=== PATIENT | female | born 1940 | race Caucasian/White ===

== ENCOUNTER 2017-03-31 05:54 | Day surgery (SDC) | payer MEDICARE, OTHER ==
[2017-03-31] MEDS ORDERED: Midazolam 1 MG/ML 2 ML SDV IV ONE ×5 (05:55→06:47)
[2017-03-31] MEDS ORDERED: fentaNYL 100 MCG/2 ML SDV IV ONE ×3 (05:55→06:37)
[2017-03-31] MEDS ORDERED: Dextrose 5%-0.45% NaCl 1,000 ML IV SCH (06:00)
[2017-03-31] MEDS ORDERED: Sodium Chloride 0.9% 10 ML Syringe FLUSH PRN (06:00)
[2017-03-31] MEDS ORDERED: Midazolam 1 MG/ML 2 ML SDV ONE (06:25)
[2017-03-31] MEDS ORDERED: fentaNYL 100 MCG/2 ML SDV ONE (06:25)
--- NOTE | 2017-03-31 07:21 | OR ---
DATE: 03/31/2017 PROCEDURES: Total colonoscopy, narrow-band imaging, and multiple cold snare polypectomies. INSTRUMENT USED: PCF-H180 AL Olympus video colonoscope. PREMEDICATIONS: Fentanyl 100 mcg intravenous, Versed 3 mg intravenous. Nasal O2 cannula. The procedure was done under pulse oximetry, BP recording, and career specialist. INDICATIONS: The patient with previous colonic adenoma and recent difficulties of constipation. Colonoscopic examination is done for detection of any polypoid lesions and removal, endoscopic hemostasis therapy if needed. DESCRIPTION OF PROCEDURE: Initial rectal exam was unremarkable. Rigid anoscopy was normal. The colonoscope was passed with ease. Numerous scattered diverticula were noted in the distal left colon along with deformity. The scope was passed with ease up to the ileocecal area. Photographs were taken of the normal-appearing cecum identified by double-bulged ileocecal folds. No bleeding was noted from any of the visualized areas at the commencement of the examination. In the mid transverse colon and proximal transverse colon, 5 mm sized benign-appearing polyps were noted. NBI views were obtained. Photograph was taken of the mid transverse colon polyp. Cold snare polypectomies were done. The tissues were retrieved and sent for histopathology. No stricture. No vascular ectasia. No large isolated ulcerations seen. No evidence of diffuse inflammatory bowel disease in the form of friability, contact bleeding, or ulcerations. Probing the proximal sides of folds and flexures, using adequate distention and clearing up the stool material, withdrawal of the scope was made. Cecum to rectum time over 6 minutes. No bleeding was noted from any of the visualized areas at the completion of examination. IMPRESSION: 1. Diverticulosis. 2. Multiple diminutive colonic polyps. The patient tolerated the procedure well. [facility] /[id number]
== END 2017-03-31 09:02 | disposition home or self-care (01) ==
LOC: DL.ENDO 05:54
PROVIDERS: ATTEND Internal Medicine Gastroenterology
DX: Z12.11 Encounter for screening for malignant neoplasm of colon (principal); K57.30 Diverticulosis of large intestine without perforation or abscess without bleeding; D12.3 Benign neoplasm of transverse colon; F41.1 Generalized anxiety disorder; F32.9 Major depressive disorder, single episode, unspecified; E78.5 Hyperlipidemia, unspecified; Z86.010 Personal history of colon polyps; Z90.49 Acquired absence of other specified parts of digestive tract; Z88.8 Allergy status to other drugs, medicaments and biological substances
CPT/HCPCS: 45385; J2250; J3010; J7042; 88305

== ENCOUNTER 2017-09-13 06:21 | Day surgery (SDC) | payer MEDICARE, OTHER ==
[2017-09-13] MEDS ORDERED: Sodium Chloride 0.9% 10 ML Syringe IV ONE (06:22)
[2017-09-13] MEDS ORDERED: Midazolam 1 MG/ML 2 ML SDV IV ONE (06:22)
[2017-09-13] MEDS ORDERED: Dexamethasone 4 MG/ML SDV IV ONE (06:22)
[2017-09-13] MEDS ORDERED: Moxifloxacin 0.5% Ophth Soln 3 ML Bottle EYERT ONE (06:30)
[2017-09-13] MEDS ORDERED: Ondansetron 4 MG/2 ML SDV IVPUSH PRN (06:30)
[2017-09-13] MEDS ORDERED: Proparacaine 0.5% Ophth Soln 15 ML Bottle EYERT ONE (06:30)
[2017-09-13] MEDS ORDERED: Phenylephrine 10% Ophth Soln 5 ML Bot EYERT PRN (06:30)
[2017-09-13] MEDS ORDERED: Sodium Chloride 0.9% 10 ML Syringe FLUSH PRN (06:30)
[2017-09-13] MEDS ORDERED: Povidone-Iodine 5% Sterile Ophth Soln 30 ML Bottle EYERT ONE ×2 (06:30→07:45)
[2017-09-13] MEDS ORDERED: Acetaminophen 325 MG Tab PO PRN (06:30)
[2017-09-13] MEDS ORDERED: Phenylephrine 10% Ophth Soln 5 ML Bot EYERT ONE (06:30)
[2017-09-13] MEDS ORDERED: Timolol Maleate 0.5% Ophth Soln 5 ML Bottle EYERT ONE (06:30)
[2017-09-13] MEDS ORDERED: Cataract Ophth Solution EYERT ONE (06:30)
[2017-09-13] MEDS ORDERED: Tetracaine HCl/PF 0.5% 4 ML Bottle EYERT ONE (07:44)
[2017-09-13] MEDS ORDERED: Lidocaine 1% 30 ML SDV INJECT ONE (07:52)
[2017-09-13] MEDS ORDERED: Balanced Salt Solution Plus Ophth Irrig 500 ML Bottle IOCULAR ONE (07:56)
[2017-09-13] MEDS ORDERED: Vancomycin 500 MG SDV EYERT ONE (07:56)
[2017-09-13] MEDS ORDERED: Dexamethasone 4 MG/ML SDV IOCULAR ONE (07:58)
[2017-09-13] MEDS ORDERED: Chondroitin Sulfate/Hyaluronate Sodium Ophth Inj 0.75 ML Syringe EYERT ONE (07:59)
[2017-09-13] MEDS ORDERED: Dexamethasone/Neomycin/Polymyxin B Ophth Oint 3.5 GM Tube EYERT ONE (08:00)
[2017-09-13] MEDS ORDERED: Apraclonidine 0.5% Ophth Soln 5 ML Bot EYERT ONE (08:00)
--- NOTE | 2017-09-13 11:09 | OR ---
DATE: 09/13/2017 PREOPERATIVE DIAGNOSIS: Visually significant mixed cataract, right eye. POSTOPERATIVE DIAGNOSIS: Visually significant mixed cataract, right eye. PROCEDURE: Extracapsular cataract extraction with intraocular lens implant, right eye. ANESTHESIA: Topical/local MAC. COMPLICATIONS: None. INDICATION: Ms. Bhandari was seen in the clinic. She has complained of a slow progressive decrease in vision. Clinical examination reveals visually significant cataract. I explained options; I offered cataract surgery; and I explained risks including the potential for infection, retinal detachment, and loss of vision amongst others. She is symptomatic and requested surgery. She requested a monofocal implant. OPERATIVE DESCRIPTION: After informed consent was obtained and the risks, benefits, and alternatives were explained, the patient was brought to the operative suite and topical anesthesia was administered. The patient was then prepped and draped in the sterile fashion, and attention was placed on the right eye. A sterile lid speculum was placed into the right eye to allow operative exposure. A full-thickness paracentesis was made in the temporal portion of the operative eye. Preservative-free lidocaine 0.1 mL was injected into the anterior chamber followed by viscoelastic. A full-thickness corneal incision was then made into the anterior chamber. A bent needle cystotome was used to create a small aleah in the anterior capsule. The capsulorrhexis forceps was then used to create a 360-degree curvilinear capsulorrhexis. The nucleus was then removed using a phacoemulsification handpiece, and the remaining cortical material was then removed with irrigation and aspiration handpiece. Following removal of the cortical material, the capsular bag was then inspected and noted to be free of any holes or tears. Viscoelastic was then injected into the capsular bag, and the intraocular lens was inserted into the capsular bag. The viscoelastic material was then removed from both the anterior and posterior chambers and from behind the IOL. The lens and capsular bag were then reinspected. The IOL was well centered and the capsular bag intact. The wound and paracentesis sites were inspected and hydrated with balanced saline solution. Both were found to be self-sealing. The intraocular pressure was assessed digitally and found to be within normal range. A good red reflex was noted at the completion of the procedure. No complications occurred during the operation. At the completion of the procedure, Maxitrol, Voltaren, and Iopidine drops were placed into the operative eye. A sterile eye shield was placed over the operative eye, and the patient was transported to the postoperative recovery area having tolerated the procedure well. Postoperative instructions were given along with a postoperative appointment. The patient was advised to call with any questions or concerns. [facility] /[id number]
== END 2017-09-13 09:03 | disposition home or self-care (01) ==
LOC: DL.SDS 06:21
PROVIDERS: ATTEND Ophthalmology
PROC: 08RJ3JZ Replacement of Right Lens with Synthetic Substitute, Percutaneous Approach (ICD-10-PCS; principal; 2017-09-13)
DX: H26.8 Other specified cataract (principal); E78.5 Hyperlipidemia, unspecified; Z87.891 Personal history of nicotine dependence; F32.9 Major depressive disorder, single episode, unspecified; F41.9 Anxiety disorder, unspecified; Z79.82 Long term (current) use of aspirin; Z79.899 Other long term (current) drug therapy; Z88.8 Allergy status to other drugs, medicaments and biological substances
CPT/HCPCS: 66984; A9270; J1100; J2250; J3370; J7050; 00140

== ENCOUNTER 2019-07-30 21:26 | Emergency (ER) | payer MEDICARE, OTHER ==
[2019-07-30] MEDS ORDERED: Ondansetron 4 MG Tab.DIS PO ONE (21:27)
[2019-07-30] MEDS ORDERED: Sodium Chloride 0.9% 1,000 ML IV ONE (21:37)
[2019-07-30] MEDS ORDERED: Ondansetron 4 MG/2 ML SDV IVPUSH ONE (21:37)
[2019-07-30 22:19] LABS: ANION GAP 13.2 mEq/L (7-13); CHLORIDE,CL 98 mmol/L (98-107); SODIUM,NA 137 mmol/L (136-145)
[2019-07-30] MEDS ORDERED: Iopamidol 612 MG/ML 100 ML Bottle IVPUSH ONE (22:30)
[2019-07-30] MEDS ORDERED: Potassium Chloride 10 MEQ in Premix Bag 1 BAG IV ONE (22:33)
[2019-07-30] MEDS ORDERED: Acetaminophen 325 MG Tab PO ONE (23:25)
[2019-07-30] MEDS ORDERED: Ondansetron 4 MG Tab.DIS ONE (23:51)
--- NOTE | 2019-07-31 00:05 | EDM.PDOC ---
"ED HPI GENERAL MEDICAL PROBLEM - General Chief Complaint: Fever Stated Complaint: vomiting/temp Time Seen by Provider: 07/30/19 22:05 Source of Information: Reports: Patient, Other (friend) History Limitations: Reports: No Limitations - History of Present Illness INITIAL COMMENTS - FREE TEXT/NARRATIVE: ED ambulatory with c/o fever, vomiting and nausea, Generalized weakness tonight. Multiple emesis starting at 630 this am, at least hourly vomiting throughout day. Unable to keep down sips of & up or tylenol tonight. Temp max tonight 101.6. Reports was through [employer] drive-thru COVID testing today. No results known. Denies SOB. Has had generalized body aches but chronic, Some abdominal cramping this am none now. No cough, No sore throat, Mild intermittent headache, No dizziness. No diarrhea, BM earlier today normal. No urinary symptoms. Treatments PHOTO CARTOGRAPHER: Reports: Acetaminophen - Related Data Allergies Allergy/AdvReac Type Severity Reaction Status Date / Time atorvastatin [From Lipitor] Allergy Muscle Verified 07/30/19 21:57 Aches pravastatin [From Pravachol] Allergy Muscle Verified 07/30/19 21:57 Aches Home Meds: Home Meds Calcium Carbonate/Vitamin D3 [Calcium 600 + Vit D 400] 1 each PO BID 08/21/13 [ History] LORazepam [Ativan] 1 mg PO BEDTIME 08/21/13 [History] Aspirin [Adult Low Dose Aspirin EC] 81 mg PO DAILY 09/27/13 [History] Selenomethionine [Selenium] 200 mcg PO DAILY 09/27/13 [History] Vitamin B Complex [B Complex] 1 tab PO DAILY 09/27/13 [History] Melatonin 1 tab PO BEDTIME PRN 03/21/17 [History] Escitalopram [Lexapro] 5 mg PO DAILY 03/30/17 [History] Arjuna 1 tab PO DAILY 08/30/17 [History] Chlorthalidone 12.5 mg PO BEDTIME 08/30/17 [History] Hya/PVP/Alyse/Jaime/PG/Mal/Hyd/Justin [Rincinol P.r.n. Mouth Rinse] 1 dose PO ASDIRECTED PRN 08/30/17 [History] Ibuprofen [Advil] 2 tab PO .EVERYOTHERDAY 09/04/17 [History] Naproxen Sodium [Aleve] 220 - 1,220 mg PO DAILY PRN 09/07/17 [History] Past Medical History HEENT History: Reports: Cataract Cardiovascular History: Reports: High Cholesterol, Hypertension Respiratory History: Reports: None Gastrointestinal History: Reports: Colon Polyp, Gastritis Genitourinary History: Reports: None BED MANAGER History: Reports: , Spontaneous , Other (See Below) Other BED MANAGER History: POSTMENOPAUSAL Musculoskeletal History: Reports: Arthritis, Back Pain, Chronic, Osteoarthritis Other Musculoskeletal History: sciatic nerve discomfort Neurological History: Reports: None Psychiatric History: Reports: Anxiety, Depression Endocrine/Metabolic History: Reports: None Hematologic History: Reports: None Immunologic History: Reports: None Oncologic (Cancer) History: Reports: Other (See Below) Other Oncologic History: HX OF MENINGIOMA Dermatologic History: Reports: None - Infectious Disease History Infectious Disease History: Reports: Chicken Pox, Measles, Mumps - Past Surgical History Head Surgeries/Procedures: Reports: None HEENT Surgical History: Reports: Adenoidectomy, Cataract Surgery, Tonsillectomy Cardiovascular Surgical History: Reports: None Respiratory Surgical History: Reports: None GI Surgical History: Reports: Cholecystectomy, Colonoscopy, EGD, Polypectomy Female Surgical History: Reports: Section Endocrine Surgical History: Reports: None Neurological Surgical History: Reports: Other (See Below) Other Neurological Surgeries/Procedures: EPIDURAL INJECTION LUMBAR/CAUDAL Musculoskeletal Surgical History: Reports: Shoulder Surgery, Other (See Below) Other Musculoskeletal Surgeries/Procedures:: CLAVICLE RESECTION Oncologic Surgical History: Reports: None Dermatological Surgical History: Reports: None Social & Family History - Family History Family Medical History: Noncontributory - Tobacco Use Smoking Status *Q: Never Smoker Second Hand Smoke Exposure: No - Caffeine Use Caffeine Use: Reports: Soda Other Caffeine Use: 4 cups daily - Alcohol Use Date of Last Drink: 07/30/19 - Recreational Drug Use Recreational Drug Use: No ED ROS GENERAL - Review of Systems Review Of Systems: Comprehensive ROS is negative, except as noted in HPI. ED EXAM, GI/ABD - Physical Exam Exam: See Below Exam Limited By: No Limitations General Appearance: Alert, Mild Distress Eyes: Bilateral: EOMI Ears: Normal External Exam Nose: Normal Inspection Throat/Mouth: Normal Inspection Head: Atraumatic, Normocephalic Neck: Normal Inspection Respiratory/Chest: No Respiratory Distress, Lungs Clear, Normal Breath Sounds. No: Crackles, Rales, Rhonchi, Wheezing Cardiovascular: Regular Rate, Rhythm GI/Abdominal Exam: Normal Bowel Sounds, Soft, Non-Tender Back Exam: Normal Inspection Extremities: Normal Inspection, Normal Range of Motion Neurological: Alert, Oriented, Normal Cognition, Normal Gait, Normal Reflexes Psychiatric: Normal Affect Skin Exam: Warm, Dry, Intact, Normal Color Course - Vital Signs Last Recorded V/S: Last Vital Signs Temp 99 F 07/30/19 23:08 Pulse 94 07/30/19 23:08 Resp 18 07/30/19 23:08 BP 128/55 L 07/30/19 23:08 Pulse Ox 95 07/30/19 23:08 - Orders/Labs/Meds Orders: Active Orders 24 hr Category Date Time Status Abdomen Pelvis w Cont [CT] Urgent Exams 07/30/19 22:29 Ordered CULTURE BLOOD [] Stat Lab 07/30/19 21:35 Ordered CULTURE BLOOD [] Stat Lab 07/30/19 21:39 Received CULTURE STREP A CONFIRMATION [] Stat Lab 07/30/19 21:35 Results STREP SCRN A RAPID W CULT CONF [] Stat Lab 07/30/19 21:35 Results Sodium Chloride 0.9% [Normal Saline] 1,000 ml Med 07/30/19 21:37 Active IV .BOLUS Blood Culture x2 Reflex Set [OM.PC] Stat Oth 07/30/19 21:34 Ordered Isolation [COMM] Routine Oth 07/30/19 21:36 Active Medication Orders Sodium Chloride (Normal Saline) 1,000 mls @ 200 mls/hr IV .BOLUS ONE Stop: 07/31/19 02:36 Last Infusion: 07/30/19 23:30 Dose: 350 mls/hr Admin: 07/30/19 21:45 Dose: 200 mls/hr Labs: Laboratory Tests 07/30/19 07/30/19 07/30/19 Range/Units 21:35 21:39 21:39 WBC 10.5 H (5.0-10.0) 10^3/uL RBC 4.92 (4.2-5.4) 10^6/uL Hgb 15.0 (12.0-16.0) g/dL Hct 43.4 (37.0-47.0) % MCV 88.2 (80-100) fL MCH 30.5 (27.0-34.0) pg MCHC 34.6 (33.0-35.0) g/dL Plt Count 190 (150-450) 10^3/uL Neut % (Auto) 89.5 H (42.2-75.2) % Lymph % (Auto) 4.2 L (20.5-50.1) % [place] % (Auto) 6.1 (2-8) % Eos % (Auto) 0.1 L (1.0-3.0) % Baso % (Auto) 0.1 (0.0-1.0) % PT (9.0-12.0) SEC INR (0.9-1.2) D-Dimer, Quantitative 713 H (0-400) ng/mL Sodium (136-145) mmol/L Potassium (3.5-5.1) mmol/L Chloride (98-107) mmol/L Carbon Dioxide (21-32) mmol/L Anion Gap (7-13) mEq/L BUN (7-18) mg/dL Creatinine (0.55-1.02) mg/dL Est Cr Clr Drug Dosing mL/min Estimated GFR (MDRD) BUN/Creatinine Ratio (No establ ref range) Glucose (74-99) mg/dL Lactic Acid (0.4-2.0) mmol/L Calcium (8.5-10.1) mg/dL Magnesium (1.8-2.4) mg/dL Total Bilirubin (0.2-1.0) mg/dL AST (15-37) U/L ALT (14-59) U/L Alkaline Phosphatase (46-116) U/L Troponin I (0.000-0.056) ng/mL C-Reactive Protein (0.0-0.9) mg/dL Total Protein (6.4-8.2) g/dL Albumin (3.4-5.0) g/dL Globulin Albumin/Globulin Ratio Amylase (25-115) U/L Lipase (73-393) U/L Urine Color (YELLOW) Urine Appearance (CLEAR) Urine pH (5.0-9.0) Ur Specific [place] (1.005-1.030) Urine Protein (NEGATIVE) Urine Glucose (UA) (NEGATIVE) Urine Ketones (NEGATIVE) Urine Occult Blood (NEGATIVE) Urine Nitrite (NEGATIVE) Urine Bilirubin (NEGATIVE) Urine Urobilinogen (0.2-1.0) mg/dL Ur Leukocyte Esterase (NEGATIVE) U Hyaline Cast (Auto) Urine RBC /HPF Urine WBC (0-5/HPF) /HPF Ur Epithelial Cells (NOT SEEN) /HPF Amorphous Sediment (NOT SEEN) /HPF Urine Bacteria (0-FEW/HPF) /HPF Urine Mucus (NOT SEEN) /LPF SARS-CoV-2 RNA (RT-PCR) Negative (NEGATIVE) 07/30/19 07/30/19 07/30/19 Range/Units 21:39 21:39 21:39 WBC (5.0-10.0) 10^3/uL RBC (4.2-5.4) 10^6/uL Hgb (12.0-16.0) g/dL Hct (37.0-47.0) % MCV (80-100) fL MCH (27.0-34.0) pg MCHC (33.0-35.0) g/dL Plt Count (150-450) 10^3/uL Neut % (Auto) (42.2-75.2) % Lymph % (Auto) (20.5-50.1) % [place] % (Auto) (2-8) % Eos % (Auto) (1.0-3.0) % Baso % (Auto) (0.0-1.0) % PT 10.1 (9.0-12.0) SEC INR 1.1 (0.9-1.2) D-Dimer, Quantitative (0-400) ng/mL Sodium 137 (136-145) mmol/L Potassium 3.2 L (3.5-5.1) mmol/L Chloride 98 (98-107) mmol/L Carbon Dioxide 29 (21-32) mmol/L Anion Gap 13.2 H (7-13) mEq/L BUN 22 H (7-18) mg/dL Creatinine 1.01 (0.55-1.02) mg/dL Est Cr Clr Drug Dosing 41.97 mL/min Estimated GFR (MDRD) 53 BUN/Creatinine Ratio 21.8 (No establ ref range) Glucose 148 H (74-99) mg/dL Lactic Acid 1.8 (0.4-2.0) mmol/L Calcium 8.5 (8.5-10.1) mg/dL Magnesium 1.5 L (1.8-2.4) mg/dL Total Bilirubin 0.7 (0.2-1.0) mg/dL AST 22 (15-37) U/L ALT 36 (14-59) U/L Alkaline Phosphatase 64 (46-116) U/L Troponin I < 0.017 (0.000-0.056) ng/mL C-Reactive Protein 11.7 H (0.0-0.9) mg/dL Total Protein 7.1 (6.4-8.2) g/dL Albumin 3.9 (3.4-5.0) g/dL Globulin 3.2 Albumin/Globulin Ratio 1.2 Amylase 27 (25-115) U/L Lipase 138 (73-393) U/L Urine Color (YELLOW) Urine Appearance (CLEAR) Urine pH (5.0-9.0) Ur Specific [place] (1.005-1.030) Urine Protein (NEGATIVE) Urine Glucose (UA) (NEGATIVE) Urine Ketones (NEGATIVE) Urine Occult Blood (NEGATIVE) Urine Nitrite (NEGATIVE) Urine Bilirubin (NEGATIVE) Urine Urobilinogen (0.2-1.0) mg/dL Ur Leukocyte Esterase (NEGATIVE) U Hyaline Cast (Auto) Urine RBC /HPF Urine WBC (0-5/HPF) /HPF Ur Epithelial Cells (NOT SEEN) /HPF Amorphous Sediment (NOT SEEN) /HPF Urine Bacteria (0-FEW/HPF) /HPF Urine Mucus (NOT SEEN) /LPF SARS-CoV-2 RNA (RT-PCR) (NEGATIVE) 07/30/19 Range/Units 22:25 WBC (5.0-10.0) 10^3/uL RBC (4.2-5.4) 10^6/uL Hgb (12.0-16.0) g/dL Hct (37.0-47.0) % MCV (80-100) fL MCH (27.0-34.0) pg MCHC (33.0-35.0) g/dL Plt Count (150-450) 10^3/uL Neut % (Auto) (42.2-75.2) % Lymph % (Auto) (20.5-50.1) % [place] % (Auto) (2-8) % Eos % (Auto) (1.0-3.0) % Baso % (Auto) (0.0-1.0) % PT (9.0-12.0) SEC INR (0.9-1.2) D-Dimer, Quantitative (0-400) ng/mL Sodium (136-145) mmol/L Potassium (3.5-5.1) mmol/L Chloride (98-107) mmol/L Carbon Dioxide (21-32) mmol/L Anion Gap (7-13) mEq/L BUN (7-18) mg/dL Creatinine (0.55-1.02) mg/dL Est Cr Clr Drug Dosing mL/min Estimated GFR (MDRD) BUN/Creatinine Ratio (No establ ref range) Glucose (74-99) mg/dL Lactic Acid (0.4-2.0) mmol/L Calcium (8.5-10.1) mg/dL Magnesium (1.8-2.4) mg/dL Total Bilirubin (0.2-1.0) mg/dL AST (15-37) U/L ALT (14-59) U/L Alkaline Phosphatase (46-116) U/L Troponin I (0.000-0.056) ng/mL C-Reactive Protein (0.0-0.9) mg/dL Total Protein (6.4-8.2) g/dL Albumin (3.4-5.0) g/dL Globulin Albumin/Globulin Ratio Amylase (25-115) U/L Lipase (73-393) U/L Urine Color Dark yellow (YELLOW) Urine Appearance Slightly cloudy (CLEAR) Urine pH 7.0 (5.0-9.0) Ur Specific [place] 1.025 (1.005-1.030) Urine Protein 100 H (NEGATIVE) Urine Glucose (UA) Negative (NEGATIVE) Urine Ketones Negative (NEGATIVE) Urine Occult Blood Trace-intact H (NEGATIVE) Urine Nitrite Negative (NEGATIVE) Urine Bilirubin Negative (NEGATIVE) Urine Urobilinogen 0.2 (0.2-1.0) mg/dL Ur Leukocyte Esterase Negative (NEGATIVE) U Hyaline Cast (Auto) Occasional Urine RBC 10-20 H /HPF Urine WBC 0-5 (0-5/HPF) /HPF Ur Epithelial Cells Few (NOT SEEN) /HPF Amorphous Sediment Few (NOT SEEN) /HPF Urine Bacteria Few (0-FEW/HPF) /HPF Urine Mucus Rare (NOT SEEN) /LPF SARS-CoV-2 RNA (RT-PCR) (NEGATIVE) Meds: Medications Generic Name Dose Route Start Last Admin Trade Name Freq PRN Reason Stop Dose Admin Sodium Chloride 1,000 mls @ 200 mls/hr 07/30/19 21:37 07/30/19 23:30 Normal Saline IV 07/31/19 02:36 350 mls/hr .BOLUS ONE Infusion Discontinued Medications Generic Name Dose Route Start Last Admin Trade Name Freq PRN Reason Stop Dose Admin Acetaminophen 650 mg 07/30/19 23:25 07/30/19 23:30 Tylenol PO 07/30/19 23:26 650 mg NOW ONE Administration Potassium Chloride 10 meq/ 100 mls @ 100 mls/hr 07/30/19 22:33 07/30/19 23:07 Premix IV 07/30/19 23:32 100 mls/hr ONETIME ONE Administration Iopamidol 100 ml 07/30/19 22:30 07/30/19 23:10 Isovue-300 (61%) IVPUSH 07/30/19 22:31 75 ml ONETIME ONE Administration Ondansetron HCl 4 mg 07/30/19 21:37 07/30/19 21:43 Zofran IVPUSH 07/30/19 21:38 4 mg ONETIME ONE Administration Ondansetron HCl Confirm 07/30/19 23:51 Zofran Odt Administered 07/30/19 23:52 Dose 8 mg .ROUTE .[facility] ONE - Radiology Interpretation Free Text/Narrative:: [facility] Final Radiology Report Call: [phone] assistance Online chat: [email or web address] Name: CINDI RUBIN Age: 79Years F Date: 07/30/2019 SSN: -- : [id number] Study: CT ABDOMEN/PELVIS W Requesting Physician: COOPER CAGLE Images: [id number] Addl Studies: Provided Clinical History: Contrast: With Contrast Medium: Isovue 300 Contrast Amount: 75 mL Contrast Method: RAC Page 1 of 2 PROCEDURE INFORMATION: Exam: CT Abdomen And Pelvis With Contrast Exam date and time: 07/30/2019 10:51 PM Age: 79 years old Clinical indication: Fever and nausea; Abdominal pain; Generalized; Prior surgery; Surgery date: 6+ months; Surgery type: Cholecystectomy TECHNIQUE: Imaging protocol: Computed tomography of the abdomen and pelvis with intravenous contrast. Radiation optimization: All CT scans at this facility use at least one of these dose optimization techniques: automated exposure control; mA and/or kV adjustment per patient size (includes targeted exams where dose is matched to clinical indication); or iterative reconstruction. Contrast material: ISOVUE 300; Contrast volume: 75 ml; Contrast route: RAC; COMPARISON: CT Abdomen Pelvis wo Cont 08/03/2016 1:04 PM FINDINGS: Lungs: There is minimal bibasilar atelectasis. Couple stable adjacent noncalcified nodules in the left lower lobe measuring 4-5 mm on images 2:7 and 8, consistent with noncalcified granulomas. No follow-up per Fleischner criteria is necessary. Liver: Normal. No mass. Gallbladder and bile ducts: The gallbladder is absent. There is mild dilation of the extrahepatic bile ducts which may be seen following cholecystectomy. Pancreas: Normal. No ductal dilation. Spleen: Normal. No splenomegaly. Adrenals: Normal. No mass. SCOTTIE CINDI | Final Radiology Report CONFIDENTIALITY STATEMENT This report is intended only for use by the referring physician, and only in accordance with law. If you received this in error, call [phone]. Page 2 of 2 Kidneys and ureters: 1.5 cm right upper renal pole simple cyst. 1.1 cm lateral left upper renal pole simple cyst. Other subcentimeter bilateral renal low attenuation lesions are too small to accurately characterize. No hydronephrosis. Nonspecific mild bilateral perinephric fat stranding. Stomach and bowel: Colonic diverticulosis without evidence of acute diverticulitis. Moderate amount of colonic stool. No bowel obstruction. No mucosal thickening or pneumatosis. Appendix: No evidence of appendicitis. Intraperitoneal space: Unremarkable. No free air. No significant fluid collection. Vasculature: The vasculature demonstrates diffuse moderate atherosclerotic calcification. No abdominal aortic aneurysm. Lymph nodes: Unremarkable. No enlarged lymph nodes. Bladder: The the bladder is mostly decompressed. Reproductive: There is a fibroid with coarse calcifications measuring 4.1 x 4.1 cm. Bones/joints: Multilevel chronic degenerative changes of the lumbar spine. Grade 1 anterolisthesis of L3 on L4. Soft tissues: Unremarkable. IMPRESSION: 1. Colonic diverticulosis without evidence of acute diverticulitis. 2. Non-acute findings are described above. COMMENTS: Consistent with the [place]'s Incidental Findings Committee white paper (J Am True Radiol 2018): Any incidental cystic renal lesion classified in this report as too small to characterize or simple appearing is likely a benign cyst. No - Re-Assessments/Exams Free Text/Narrative Re-Assessment/Exam: 07/31/19 00:24 Nausea resolved following zofran. Tolerated tylenol and sips of water. Tx per self steady. Fever controlled. Results of labs and imaging reviewed with patient. D/c home with friend. Departure - Departure Time of Disposition: 23:55 Disposition: Home, Self-Care 01 Condition: Good Clinical Impression: Gastroenteritis Vomiting Qualifiers: Vomiting type: bilious vomiting Nausea presence: with nausea Qualified Code(s) : R11.14 - Bilious vomiting - Discharge Information *PRESCRIPTION DRUG MONITORING PROGRAM REVIEWED*: No *COPY OF PRESCRIPTION DRUG MONITORING REPORT IN PATIENT MADELIN: No Instructions: Nausea and Vomiting, Adult, [id number] Forms: ED Department Discharge Additional Instructions: tylenol 500mg-650mg every 4 hours as needed for fever/ discomfort clear liquid diet small amounts more frequently, advance diet as tolerated bland low acid foods x 48 hours follow up if weakness, dizziness or unable to keep any liquids down zofran 4mg ODT every 4 hours as needed for nausea or vomiting. Sepsis Event Note - Evaluation Sepsis Screening Result: No Definite Risk - Focused Exam Vital Signs: Vital Signs Temp Pulse Resp BP Pulse Ox 07/30/19 23:08 99 F 94 18 128/55 L 95 07/30/19 21:46 98.4 F 94 19 120/55 L 97 Date Exam was Performed: 07/31/19 Time Exam was Performed: 00:13 - My Orders Last 24 Hours: My Active Orders 07/30/19 21:34 Blood Culture x2 Reflex Set [OM.PC] Stat 07/30/19 21:35 CULTURE BLOOD [BC] Stat CULTURE STREP A CONFIRMATION [RM] Stat STREP SCRN A RAPID W CULT CONF [RM] Stat 07/30/19 21:36 Isolation [COMM] Routine 07/30/19 21:37 Sodium Chloride 0.9% [Normal Saline] 1,000 ml IV .BOLUS 07/30/19 21:39 CULTURE BLOOD [BC] Stat 07/30/19 22:29 Abdomen Pelvis w Cont [CT] Urgent - Assessment/Plan Last 24 Hours: My Active Orders 07/30/19 21:34 Blood Culture x2 Reflex Set [OM.PC] Stat 07/30/19 21:35 CULTURE BLOOD [] Stat CULTURE STREP A CONFIRMATION [RM] Stat STREP SCRN A RAPID W CULT CONF [] Stat 07/30/19 21:36 Isolation [COMM] Routine 07/30/19 21:37 Sodium Chloride 0.9% [Normal Saline] 1,000 ml IV .BOLUS 07/30/19 21:39 CULTURE BLOOD [BC] Stat 07/30/19 22:29 Abdomen Pelvis w Cont [CT] Urgent"
== END 2019-07-31 00:28 | disposition home or self-care (01) ==
LOC: DL.ED 21:26
DX: K52.9 Noninfective gastroenteritis and colitis, unspecified (principal); I10 Essential (primary) hypertension; M19.90 Unspecified osteoarthritis, unspecified site; F41.9 Anxiety disorder, unspecified; F32.9 Major depressive disorder, single episode, unspecified; Z79.82 Long term (current) use of aspirin; Z88.8 Allergy status to other drugs, medicaments and biological substances; Z79.899 Other long term (current) drug therapy
CPT/HCPCS: 36415; 74177; 80053; 81001; 82150; 83605; 83690; 83735; 84484; 85025; 85379; 85610; 86140; 87040; 87081; 87430; 87804; 96361; 96365; 96375; 99284; A9270; J2405; J3480; J7030; Q9967; U0002; 99283

== ENCOUNTER 2023-10-22 15:56 | Emergency (ER) | payer MEDICARE, OTHER ==
[2023-10-22] MEDS ORDERED: Sodium Chloride 0.9% 10 ML Syringe FLUSH PRN (16:45)
[2023-10-22] MEDS: Lactulose Soln 10 GM/15 ML 30 ML UD Cup PO ONE (16:54)
[2023-10-22] MEDS: Sodium Chloride 0.9% 1,000 ML IV ONE (16:56)
== END 2023-10-22 23:15 | disposition home or self-care (01) ==
LOC: DL.ED 15:56
DX: K59.00 Constipation, unspecified (principal); I10 Essential (primary) hypertension; E78.00 Pure hypercholesterolemia, unspecified; Z88.8 Allergy status to other drugs, medicaments and biological substances; Z79.82 Long term (current) use of aspirin; Z79.899 Other long term (current) drug therapy; Z90.49 Acquired absence of other specified parts of digestive tract
CPT/HCPCS: 74019; 96360; 99283; 99284-25; A9270-GY; J7030

== ENCOUNTER 2024-11-03 13:05 | Emergency (ER) | payer MEDICARE, OTHER ==
[2024-11-03 14:25] LABS: BASOPHILS PERCENT AUTO 0.3 % (0.0-1.0); EOSINOPHILS PERCENT AUTO 0.9 % (1.0-3.0); LYMPHOCYTES PERCENT AUTO 11.6 % (20.5-50.1); MONOCYTES PERCENT AUTO 6.8 % (2-8); NEUTROPHILS PERCENT AUTO 80.4 % (42.2-75.2); PLATELET COUNT,PLT 241 10^3/uL (150-450); RED BLOOD CELL COUNT 4.19 10^6/uL (4.2-5.4); WHITE BLOOD CELL COUNT,WBC 8.7 10^3/uL (5.0-10.0)
[2024-11-03] MEDS: Take Home: Sulfamethoxazole/Trimethoprim 800-160 MG Tab, 6 Tab Pack PO ONE (15:11)
[2024-11-03] MEDS: Take Home: Sulfamethoxazole/Trimethoprim 800-160 MG Tab, 6 Tab Pack ONE (15:28)
== END 2024-11-03 15:22 | disposition home or self-care (01) ==
LOC: DL.ED 13:05
DX: S60.041A Contusion of right ring finger without damage to nail, initial encounter (principal); L08.9 Local infection of the skin and subcutaneous tissue, unspecified; E78.00 Pure hypercholesterolemia, unspecified; I10 Essential (primary) hypertension; Z88.8 Allergy status to other drugs, medicaments and biological substances; Z79.899 Other long term (current) drug therapy; Z79.82 Long term (current) use of aspirin; W49.04XA Ring or other jewelry causing external constriction, initial encounter; Y93.89 Activity, other specified
CPT/HCPCS: 36415; 85025; 86140; 99283; A9270